=== PATIENT | female | born 1980 | race Caucasian/White ===

== ENCOUNTER → 2016-11-06 | Outpatient (CLI) | payer OTHER | LOC: RAD 10:39 → LAB 10:39 | DX: M54.2 Cervicalgia (principal); M54.5 Low back pain; R05 Cough; M54.6 Pain in thoracic spine; M47.892 Other spondylosis, cervical region; M47.897 Other spondylosis, lumbosacral region | CPT/HCPCS: 71020; 72050; 72072; 72110 ==